=== PATIENT | female | born 1970 | race Asian ===

== ENCOUNTER 2022-07-06 09:43 | Day surgery (SDC) | payer OTHER ==
[~2022-07-06] VITALS: Ht 162.6 cm; Wt 56.7 kg
[2022-07-06] MEDS ORDERED: fentaNYL citrate 0.05 MG/ML VIAL ONE (10:25)
[2022-07-06] MEDS ORDERED: LIDOCAINE 2% 100 MG/5 ML UJET TP ONE (10:25)
[2022-07-06] MEDS ORDERED: diphenhydrAMINE 50 MG/ML VIAL ONE (10:25)
[2022-07-06] MEDS ORDERED: MIDAZOLAM 5 MG/5 ML VIAL ONE (10:25)
[2022-07-06] MEDS ORDERED: MIDAZOLAM 5 MG/5 ML VIAL IV ONE (12:55)
[2022-07-06] MEDS ORDERED: fentaNYL citrate 0.05 MG/ML VIAL IVP ONE (12:55)
== END 2022-07-06 12:50 | disposition home or self-care (01) ==
LOC: MDS 09:43 → MMU 09:44 → MDS 12:50
PROVIDERS: ATTEND Internal Medicine Gastroenterology
DX: R19.5 Other fecal abnormalities (principal); K63.5 Polyp of colon; I10 Essential (primary) hypertension; K64.8 Other hemorrhoids; Z79.899 Other long term (current) drug therapy; Z20.822 Contact with and (suspected) exposure to COVID-19
CPT/HCPCS: 45385; 87426; J2250; J3010; J1200